=== PATIENT | female | born 1960 | race Two or more races ===

== ENCOUNTER 2019-05-11 09:24 | Emergency (ER) | payer OTHER ==
[~2019-05-11] VITALS: Ht 172.7 cm; Wt 122.5 kg
[~2019-05-11 09:24] MED LIST: MEDROLPACK PO; NEURONTIN300 MG PO
[2019-05-11] MEDS ORDERED: ORPHENADRINE C100 MG PO (11:50)
[2019-05-11] MEDS ORDERED: KETO10TA2 PO (11:50)
== END 2019-05-11 11:54 | disposition home or self-care (01) ==
LOC: ER 09:24
DX: M54.5 Low back pain (principal)

== ENCOUNTER 2022-09-18 08:49 | Emergency (ER) | payer OTHER ==
[~2022-09-18] VITALS: Ht 172.7 cm; Wt 127.0 kg
[~2022-09-18 08:49] MED LIST changes: +KETO10TA2 PO; +ORPHENADRINE C100 MG PO
[2022-09-18] MEDS ORDERED: KETO10TA2 PO (10:54)
== END 2022-09-18 11:27 | disposition home or self-care (01) ==
LOC: ER 08:49
DX: S80.01XA Contusion of right knee, initial encounter (principal); S70.02XA Contusion of left hip, initial encounter; S30.0XXA Contusion of lower back and pelvis, initial encounter; W18.39XA Other fall on same level, initial encounter; Y93.9 Activity, unspecified; Y92.89 Other specified places as the place of occurrence of the external cause; Y99.9 Unspecified external cause status; M25.552 Pain in left hip